=== PATIENT | female | born 2000 | race Two or more races ===

== ENCOUNTER → 2025-06-26 | Outpatient (CLI) | payer OTHER, SELFPAY ==
[2025-06-26 16:31] LABS: Hematocrit 40.3 % (37-47); Hemoglobin 13.4 g/dL (12.0-15.0); Immature Granulocytes Count 0.020 X10^3/uL (0.0-0.0); Mean Corp Hgb Conc 33.3 g/dL (32-36); Mean Corpuscular Volume 91.0 fL (81-99); Mean Platelet Vol. 10.5 fl (6.2-12.0); NRBC Flagged by Analyzer 0 % (0-5); Platelet Count 264 K/mm3 (150-450); RBC Distribution Width CV 12.7 % (11.6-14.6); RBC Distribution Width SD 42.4 fl (35.1-43.9); Red Blood Count 4.43 M/mm3 (4.2-5.4); White Blood Count 6.3 K/mm3 (4.4-11.0)
[2025-06-26 18:05] LABS: AST(SGOT) 20 U/L (<=31); Alanine Aminotransfer ALT/SGPT 18 U/L (<=34); Albumin, Serum 4.8 g/dL (3.5-5.0); Alkaline Phosphatase 39 U/L (35-104); Anion Gap 12 (5-15); BUN 11 mg/dL (4-19); BUN/Creat Ratio 14.6 RATIO (10-20); Calcium,Total 10.2 mg/dL (7.6-11.0); Carbon Dioxide 26.0 mmol/L (21.0-32.0); Chloride 103 mmol/L (98-108); Ferritin 100 ng/mL (22-378); Globulin 3.0 g/dL (2.2-4.2); Glucose 93 mg/dL (70-99); Iron 60 ug/dL (50-170); Iron Binding Capacity,Total 280 ug/dL (250-450); Iron Binding Capacity,Unsat 220 ug/dL (228-428); Potassium 4.2 mmol/L (3.3-5.1); Vitamin B12 1091 pg/mL (180-914); Vitamin D,25 Hydroxy 30.7 ng/mL (30-100)
[2025-06-26 18:19] LABS: FOLATES,SERUM (FOLIC ACID) 7.45 ng/mL (4.60-34.80)
== END | disposition home or self-care (01) ==
PROVIDERS: Referring Provider Nurse Practitioner Family; Visit Provider Nurse Practitioner Family
DX: R53.82 Chronic fatigue, unspecified (principal); R53.1 Weakness; M62.9 Disorder of muscle, unspecified; R42 Dizziness and giddiness; F41.9 Anxiety disorder, unspecified
CPT/HCPCS: 80053; 82306; 82607; 82728; 82746; 83540; 83550; 85025

== ENCOUNTER → 2025-07-22 | Outpatient (CLI) | payer OTHER, SELFPAY ==
[2025-07-27 09:08] LABS: Immunoglobulin A 174 mg/dL (87-352); Immunoglobulin G 1006 mg/dL (586-1602); Immunoglobulin M 286 mg/dL (26-217)
== END | disposition home or self-care (01) ==
PROVIDERS: Visit Provider Nurse Practitioner Family
DX: R53.82 Chronic fatigue, unspecified (principal); R53.1 Weakness; M62.9 Disorder of muscle, unspecified; R42 Dizziness and giddiness; F41.9 Anxiety disorder, unspecified
CPT/HCPCS: 82784; 82785; 83520